=== PATIENT | male | born 1940 | race Caucasian/White ===

== ENCOUNTER 2017-03-27 17:54 | Emergency (ER) | payer MEDICARE, OTHER ==
[~2017-03-27 17:54] MED LIST: ALBUTEROL17 GM INH; AMITIZA8 MCG PO; ANTIVERT12.5 M1 PO; ANTIVERT12.5 MG PO; ANTIVERT25 MG PO; ASPIR 8181 M1 PO; ASPIR 8181 MG PO; ASPIR-LOW81 M1 PO; ASPIRIN81 MG; B COMPLEX1 CAP PO; B COMPLEX1 EAC1 PO; B COMPLEX1 TAB; B COMPLEX1 TAB PO; BENTYL10 MG; BENTYL10 MG PO; BUSPIRONE HCL10 M2 PO; BUSPIRONE HCL5 M1 PO; BUSPIRONE PO; CALCIUM + D T1 UDTAB; CALCIUM 500 WIT1 TAB; CALCIUM 600 +1 EA14 PO; CALCIUM 600 +1 EAC2 PO; CALCIUM600 MG PO; CIPRO250 MG; CIPRO500 MG; CITRUCEL; CITRUCEL413 GM; CITRUCEL413 GM PO; CITRUCEL479 GM PO; DELTASONE10 MG; DELTASONE10 MG PO; DOXYCYCLINE HY100 MG PO; ENULOSE10 G/15 ML; ENULOSE10 G/15 ML PO; ENULOSE10 GM/151 PO; FISH OIL 1,0001 CA; FISH OIL 1,0001 CA PO; FISH OIL 1,0001 EA10 PO; FISH OIL 11000 MG/CA PO; FISH OIL CONC 11 CAP PO; FLAGYL500 MG; FLOMAX0.4 M1 PO; FLOMAX0.4 MG; FLOMAX0.4 MG PO; GAS-X125 M2 PO; GAS-X80 MG PO; GUAIATUSSIN AC10 ML PO; HYDROCHLOROTH12.5 M3 PO; HYDROCHLOROTHIA25 M1 PO; HYDROCHLOROTHIA25 MG; HYDROCHLOROTHIA25 MG PO; LACTULOSE PO; LACTULOSE10 G/15 ML; MECLIZINE HCL25 M3 PO; MEN'S ONE DAIL1 EACH PO; METAMUCIL1042 GM; MULTIVITAMIN1 TAB; MULTIVITAMIN1 TAB PO; NASONEX17 GM NS; NORCO 5-325 TA1 EACH PO; NOVOLOG100 U/M; NOVOLOG100 U/M SQ; NOVOLOG100 UNITS/; PRILOSEC OTC20 MG; Q-PAP325 M1 PO; REGLAN1 MG/ML NG; ROBAXIN-750750 M1 PO; SENNA8.6 M PO; SENNA8.6 M2 PO; SENNA8.6 M3 PO; SKELAXIN800 MG PO; TYLENOL325 MG PO; ULTRAM50 MG PO; ZELNORM6 MG; ZITHROMAX250MG Z-PAK PO; [UNRECOGNIZED DRUG - OTHER] PO
[2017-03-27] MEDS ORDERED: GUAIFENESIN-COD10 ML GT (20:30)
[2017-03-27] MEDS ORDERED: PROAIR HFA8.5 GM INH (20:30)
== END 2017-03-27 20:38 ==
LOC: EDMED 17:54
DX: J40 Bronchitis, not specified as acute or chronic (principal); R09.82 Postnasal drip; E10.9 Type 1 diabetes mellitus without complications; Z79.4 Long term (current) use of insulin; Z96.41 Presence of insulin pump (external) (internal)